=== PATIENT | female | born 1960 | race Caucasian/White ===

== ENCOUNTER → 2020-10-09 08:30 | Outpatient (BNVA) | payer BC, MEDICAID, SELFPAY | PROVIDERS: PCP Internal Medicine; Visit Provider Student in an Organized Health Care Education/Training Program ==

== ENCOUNTER → 2020-10-22 10:11 | Outpatient (BNVA) | payer BC, MEDICAID, SELFPAY | PROVIDERS: PCP Internal Medicine; Referring Provider Student in an Organized Health Care Education/Training Program; Visit Provider Surgery ==

== ENCOUNTER → 2021-03-10 09:03 | Outpatient (BNVA) | payer BC, MEDICAID, SELFPAY | PROVIDERS: PCP Internal Medicine; Visit Provider Nurse Practitioner Family ==

== ENCOUNTER 2023-08-22 08:48 | Outpatient (AMB) | payer BC, MEDICAID, SELFPAY ==
[2023-08-22 08:50] VITALS: BP 134/70; PULSE 75; TEMP 36.1; O2SAT 97; BMI 42.7
--- NOTE | 2023-08-22 08:50 | A.OFFVIS_ITS ---
Intake Vital Signs 08/22/23 08:50 Height 5 ft 3 in Weight 241 lb 2.971 oz BMI 42.7 BP 134/70 Blood Pressure Location Lt brachial Position Sitting Pulse 75 Pulse Source Pulse Oximeter Temp 97.0 F Temp Source Skin Pulse Oximetry (%) 97 Oxygen Delivery Method Room Air Intake Visit Reasons: Joint Pain-[place] 2020 Intake Note: Patient presents today for diffused myalgias. 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 Alvarado 63 yoF presents for follow-up of Polyarthralgia. She was last seen March 2021. Patient had Right Breast cancer, continues on letrazole and Raloxifene. Today she is bothered by her Upper and Lower back, with stiffness to her neck and trapezius muscles. Per Patient she uses cyclobenzaprine (from her sister) for pain and trazdone for sleep. She is not sure who is prescribing some of her medications. She also takes fluoxetine. Tylenold and advil helps with the back pain. She says she does not exercise, but does house work which makes her body hurt more. She also reports that at 1 point she was told she has fibromyalgia which she plans to discuss further with her primary care physicians. Prior Visit 04/2021 [place] Continues to have intermittent pain in her right shoulder due to her rotator cuff tendinopathy. Overall her pain is improved. She has completed physical therapy and now does exercises at home. She is using Tylenol with some effect and nabumetone when she has more intense pain. She is taking nabumetone sparingly. She follows with ortho at [facility] for bilateral knee pain, and has received injections of cortisone in the past. She states her knees are feeling well today. She states that she does not have any concerns today. She followed with surgery for a lump on the right side of her chest near the incision which was made for a tumor resection. Patient reports a history of breast cancer in that area many years ago. She states surgery offered minor surgery to address the lump which she declined. She will continue to monitor. [facility] Medical History (Updated 08/22/23 @ 09:41 by KIZZY uGzman-EVANGELINA) Myalgia of muscle of neck Greater trochanteric bursitis of both hips Chronic upper back pain Chronic lower back pain Lipoma of chest wall Surgical History History of lumpectomy History of total hysterectomy Family History Father Prostate cancer Maternal Aunt Lung cancer Family/Other Breast cancer Social History Alcohol intake: current Alcohol intake frequency: holidays/special occasions only Patient Tobacco Use Status: Never used Tobacco Physical Exam Vital Signs: Last Vital Signs Temp 97.0 F 08/22/23 08:50 Pulse 75 08/22/23 08:50 BP 134/70 08/22/23 08:50 Pulse Ox 97 08/22/23 08:50 Oxygen Delivery Method Room Air 08/22/23 08:50 BMI result Body Mass Index 42.7 Assessment & Plan Assessment & Plan (1) Chronic lower back pain: Code(s): M54.50 - Low back pain, unspecified; G89.29 - Other chronic pain Qualifiers: Back pain laterality: bilateral Sciatica presence: without sciatica Qualified Code(s): M54.50 - Low back pain, unspecified; G89.29 - Other chronic pain (2) Greater trochanteric bursitis of both hips: Code(s): M70.61 - Trochanteric bursitis, right hip; M70.62 - Trochanteric bursitis, left hip (3) Myalgia of muscle of neck: Code(s): M79.18 - Myalgia, other site Plan #Ms Alvarado returns to the office after a long absence with new complaints of upper and lower back mylagias and trocanteric bursitis. She decline injections today for the bursitis. I think the patient will benefit from PT for her back and trochanteric bursitis, so I will make the referral. I also encouraged her to continue the PT exercises at home. I discussed with patient's medication safety and that it has not it is advisable to take medication from someone else. She will discuss further with her primary care to restart her cyclobenzaprine. I spent 25 minutes reviewing history, evaluating patient and documenting follow- up in 1 year or sooner if needed Orders: Orders PT Evaluation and Treatment Today G89.29 - Other chronic pain, M54.50 - Low back pain, unspecified, M54.9 - Dorsalgia, unspecified, M70.61 - Trochanteric bursitis, right hip, M70.62 - Trochanteric bursitis, left hip Coding Level of Care Code Est Pt Level 3 (83079) Diagnoses Chronic bilateral low back pain without sciatica M54.50; G89.29 Back pain laterality: bilateral Sciatica presence: without sciatica Greater trochanteric bursitis of both hips M70.61; M70.62 Myalgia of muscle of neck M79.18
== END 2023-08-22 09:24 | disposition home or self-care (01) ==
PROVIDERS: PCP Internal Medicine; Visit Provider Nurse Practitioner Family
DX: M54.50 Low back pain, unspecified (principal); G89.29 Other chronic pain; M70.61 Trochanteric bursitis, right hip; M70.62 Trochanteric bursitis, left hip; M79.18 Myalgia, other site
CPT/HCPCS: 99213

== ENCOUNTER → 2023-08-22 08:48 | Outpatient (BNVA) | payer BC, MEDICAID, SELFPAY | PROVIDERS: PCP Internal Medicine; Visit Provider Nurse Practitioner Family ==

== ENCOUNTER 2024-08-20 09:49 | Outpatient (AMB) | payer BC, MEDICAID, SELFPAY ==
--- NOTE | 2024-08-20 09:58 | A.OFFVIS_ITS ---
Vital Signs 08/20/24 10:05 Height 5 ft 3 in Weight 255 lb 15.307 oz BMI 45.3 BP 140/80 H Blood Pressure Location Lt brachial Position Sitting Pulse 77 Pulse Source Pulse Oximeter Pulse Oximetry (%) 98 Oxygen Delivery Method Room Air Intake Visit Reasons: joint pain Intake Note: Patient presents for joint pain. Allergies cephalexin Allergy (Mild, Verified 08/20/24 10:02) Rash HPI Comments Details: Patient is a 64-year-old female with right breast cancer currently on letrozole and raloxifene, hypertension and polyarticular osteoarthritis/fibromyalgia here today for follow up Interval History: Patient last seen 08/22/2023 with Kimberly Sorenson. At that time she was following up for her polyarthralgias. She was complaining of upper and lower back pain with stiffness to her neck and trapezius muscles. She had evidence of trochanteric bursitis but declined injections. She was sent to PT Went to PT and had improvment in her pain Continues to have intermittent nack and shoulder pain Rheumatologic History: OA/Fibromyalgia Current Rheumatology Medication(s): [facility] Medical History (Updated 08/22/23 @ 09:41 by Kimberly Sorenson, [facility]) Myalgia of muscle of neck Greater trochanteric bursitis of both hips Chronic upper back pain Chronic lower back pain Lipoma of chest wall Surgical History History of lumpectomy History of total hysterectomy Family History Father Prostate cancer Maternal Aunt Lung cancer Family/Other Breast cancer Social History Alcohol intake: current Alcohol intake frequency: holidays/special occasions only Patient Tobacco Use Status: Never used Tobacco Review of Systems Const Details: Review of Systems Constitutional: Denies fever, chills, weight loss ENT: Denies vision changes, eye pain or eye redness, dental caries, dry mouth GI: Denies nausea, vomiting, diarrhea, abdominal pain, change in BM Pulm: Denies SOB, MENA, hemoptysis, wheezing Cards: Denies chest pain, palpitations Skin: Denies Raynaud's, rash, nail changes, photosensitivity, 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 Well appearing and in no apparent painful distress HEENT Conjunctiva and sclera clear. ?Pupils equal round and reactive to light. ?No lymphadenopathy. ? CHEST/RESPIRATORY SYSTEM Normal respiratory effort and able to speak in complete sentences. ?Clear to auscultation bilaterally. ?No crackles, rales, rhonchi, wheezes heard. CARDIAC SYSTEM Regular rate and rhythm. ?S1 and S2 heard no murmurs. 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 No deformities noted. ?No synovitis noted to the MCPs, PIPs or DIPs. ?No tenderness to palpation of these joints. Herbedens nodes Wrists: ?Full range of motion at the wrists without pain. ?No tenderness to palpation or synovitis noted to the wrists. Elbows: Full range of motion without pain. No tenderness, weakness, swelling, increased warmth or erythema. Shoulders: Full range of motion without pain. No tenderness, weakness, swelling, increased warmth or erythema. Hips: Full range of motion without pain. Hip bursa: No tenderness to palpation Knees: ?Full range of motion. ?No tenderness, swelling, increased warmth or erythema.?No effusion or crepitations Ankles: Full range of motion. ?No tenderness, swelling, increased warmth or erythema.? Feet: ?Negative squeeze test. ?No tenderness to palpation or swelling of the MTPs. Tender points:?No tenderness to palpation of the bilateral trapezius, supraspinatus, greater trochanters, anterior costochondral junctions, bilateral gluteal areas, bilateral suboccipital muscle insertions SKIN Skin intact without rashes. Results Reviewed Results Reviewed: No results noted in the chart Assessment & Plan Assessment & Plan (1) Polyarticular osteoarthritis: Code(s): M15.9 - Polyosteoarthritis, unspecified Plan: #Polyarticular OA Patient is a 64-year-old female with polyarticular osteoarthritis here today for follow up. Her joint pains are likely due to degenerative disease involving her C-spine and her spine. Recommended exercise and stretching at home as well as weight loss. Plan - Stretching and light exercise - Weight loss - RTC prn Plan I spent 20 minutes reviewing the record and labs, taking a history, examining the patient, discussing the treatment plan, ordering diagnostic work up and documenting in the medical record Coding Level of Care Code Est Pt Level 3 (27758) Diagnoses Polyarticular osteoarthritis M15.9
[2024-08-20 10:05] VITALS: BP 140/80; PULSE 77; O2SAT 98; BMI 45.3
--- OUTSIDE RECORDS SUMMARY | 2024-08-20 10:55 | XMS_ITS | Encounter Summary ---
Author Organization [facility] Address [address] [place] [address] Care Team Providers Care Digital Operations Analyst Name Role Phone Sanjana Arvizu MD Primary Care Provider [phone] Reason for Visit * Reason Comments Headache Encounter Details Date Type Department Care Team ([facility] st Contact Info) Description 07/24/2024 1:15 PM EST Office Visit Internal Medicine - [place] [address] [facility] [address] [place] [phone] Sanjana Arvizu MD 175 [facility] [address] [place] [phone] Sinusitis, unspecified chronicity, unspecified location (Primary Dx); HTN (hypertension), benign Social History Tobacco Use Types Packs/Day Years Used Date Smoking Tobacco: Never Smokeless Tobacco: Never Tobacco Cessation:Counseling Given: Not Answered Alcohol Use Standard Drinks/Week Comments Yes 0 (1 standard drink = 0.6 oz pur e alcohol) Comments Unknown Sex and Gender Information Value Date Recorded Sex Assigned at Not on file Legal Sex Female 12:53 AM EST Gender Identity Not on file Sexual Orientation Not on file documented as of this encounter Last Filed Vital Signs Vital Sign Reading Time Taken Comments Blood Pressure 154/68 07/24/2024 1:25 PM EST Pulse 88 07/24/2024 1:22 PM EST Temperature 36.6 ??C (97.8 ??F) 07/24/2024 1:22 PM ES T Respiratory Rate - - Oxygen Saturation 98% 07/24/2024 1:22 PM EST Inhaled Oxygen Concentration - - Weight 113 kg (250 lb) 07/24/2024 1:22 PM EST Height - - Body Mass Index 44.29 05/15/2024 3:44 PM EST documented in this encounter Ordered Prescriptions Prescription Sig Dispense Quantity Refills Last Filled Start Date End Date hydroCHLOROthiazid e 12.5 mg tablet Take 1 tablet (12.5 mg total) by mouth 1 (one) time each day. 30 each 5 07/24/2024 5 predniSONE (DELTASONE) 20 mg tablet Take 3 tabs (60mg) daily for 3 days, then take 2 tabs (40mg) daily for 3 days, then take 1 tab (20mg) daily for 3 days. 18 tablet 07/24/2024 5 azithromycin (ZITHROMAX) 250 mg tablet Take 2 tablets (500 mg total) by mouth 1 (one) time each day for 1 day, THEN 1 tablet (250 mg total) 1 (one) time each day for 4 days. 6 each 07/24/2024 5 documented in this encounter Progress Notes * Sanjana Arvizu MD - 07/24/2024 1:15 PM ESTAddended by: SANJANA ARVIZU on: 07/25/2024 11:50 PM Modules accepted: Level of Service * Sanjana Arvizu MD - 07/24/2024 1:15 PM EST CHIEF COMPLAINT: Headache IDENTIFIER: Jenny Mendez is a 64 y.o. old female. HPI: Patient is concerned about recurrent headaches and sinus congestion, Was recently prescribed sumatriptan for migraine headaches, she does not like the side effect of feeling tired in the morning. Patient's blood pressure is elevated, headache could be related to elevated blood pressure as well ROS: GENERAL: No malaise, significant weight loss or fever NECK: No lumps, goiter, pain or significant neck swelling RESPIRATORY: No cough, wheezing or shortness of breath CARDIOVASCULAR: No chest pain, leg swelling or palpitations GI: No abdominal discomfort, blood in stools or black stools PSYCH: No sleep disturbance, mood disorder or recent psychosocial stressors. PAST MEDICAL HISTORY: Patient Active Problem List Diagnosis Date Noted Malignant neoplasm of female breast (CMS/HCC) 05/15/2024 Vitamin D deficiency 05/15/2024 Vitamin B12 deficiency 05/15/2024 Osteoporosis 05/15/2024 Sprain of lateral collateral ligament of right knee 09/04/2018 Acute medial meniscus tear, right, sequela 09/04/2018 Arthritis of knee, right 08/21/2018 Old complete ACL tear, left 08/17/2017 Dislocation of left knee with medial meniscus tear 08/17/2017 Patellofemoral pain syndrome of left knee 08/02/2017 Past Surgical History: Procedure Laterality Date BREAST REDUCTION PROCEDURE: MN BREAST REDUCTION; COMMENT: and reconstruction SECTION PROCEDURE: HISTORICAL CHOLECYSTECTOMY 2000 PROCEDURE: HISTORICAL CHOLECYSTECTOMY COLONOSCOPY 09/08/2021 PROCEDURE: HISTORICAL COLONOSCOPY; COMMENT: diverticulosis HYSTERECTOMY PROCEDURE: HISTORICAL TOTAL HYSTERECTOMY WITH BSO MAMMOGRAM SIMON 01/2007 PROCEDURE: MAMMOGRAM, SCREENING, BOTH BREASTS; COMMENT: [facility]; neg OTHER SURGICAL HISTORY 2000 PROCEDURE: LAPAROSCOPIC SPLENECTOMY; COMMENT: Open TONSILLECTOMY PROCEDURE: HISTORICAL TONSILLECTOMY; COMMENT: and adenoidectomy SOCIAL HISTORY: Social History Tobacco Use Smoking status: Never Smokeless tobacco: Never Substance Use Topics Alcohol use: Yes FAMILY HISTORY: Family History Problem Relation Name Age of Onset Heart attack Mother age 45 Other cancer Maternal Grandfather unknown Hyperlipidemia Father Diabetes Father Breast cancer Other cousin Lung cancer Aunt mat Family Status Relation Name Status Mother (Not Specified) MGF (Not Specified) Father (Not Specified) Other (Not Specified) Aunt (Not Specified) No partnership data on file MEDICATIONS DISCONTINUED/REORDERED: Medications Discontinued During This Encounter Medication Reason SUMAtriptan (IMITREX) 25 mg tablet Non-compliance ACTIVE MEDICATIONS: Outpatient Medications Marked as Taking for the 07/24/24 encounter (Office Visit) with Sanjana Arvizu MD Medication Sig Dispense Refill acetaminophen (TYLENOL) 325 mg tablet Take 2 tablets (650 mg total) by mouth every 6 hours as needed. alendronate (FOSAMAX) 70 mg tablet Take 1 tablet (70 mg total) by mouth every 7 (seven) days. Take in the morning with a full glass of water, on an empty stomach, and do not take anything else by mouth or lie down for the next 30 min. 12 each 2 calcium carbonate-vitamin D3 600 mg-10 mcg (400 unit) capsule Take 1 capsule by mouth 2 (two) timesa day. 180 each 2 cyanocobalamin (VITAMIN B-12) 500 mcg tablet Take 1 tablet (500 mcg total) by mouth 1 (one) time each day. 90 tablet 3 FLUoxetine (PROzac) 20 mg capsule Take 1 capsule (20 mg total) by mouth 1 (one) time each day. ALLERGIES: Allergies Allergen Reactions Cephalexin Other Reaction(s): Rash/Dermatitis PHYSICAL EXAM: Visit Vitals BP (!) 154/68 (BP Location: Left arm, Patient Position: Sitting, BP Cuff Size: Large adult) Pulse 88 Temp 36.6 ??C (97.8 ??F) (Temporal) Wt 113 kg (250 lb) SpO2 98% BMI 44.29 kg/m?? Smoking Status Never BSA 2.12 m?? APPEARANCE: Alert and in no acute distress NECK: Neck supple, no adenopathy, thyroid symmetric and of normal size HEART: RRR with normal S1 and S2, no murmurs, no gallops, no JVD appreciated LUNG: clear to auscultation ABDOMEN: Bowel sounds normoactive, no bruits, soft, non-tender, without organomegaly or palpable masses SKIN: Skin color, texture, turgor normal. No rashes or lesions. LABS/IMAGING: Appointment on 05/27/2024 Component Date Value Ref Range Status Sodium 05/27/2024 136 133 - 145 mmol/L Final Potassium 05/27/2024 3.7 3.5 - 5.5 mmol/L Final Chloride 05/27/2024 103 96 - 110 mmol/L Final CO2 05/27/2024 31 21 - 32 mmol/L Final Anion Gap 05/27/2024 2 (L) 3 - 11 Final Glucose 05/27/2024 126 (H) 70 - 100 mg/dL Final BUN 05/27/2024 9 5 - 25 mg/dL Final Creatinine 05/27/2024 0.63 0.50 - 1.10 mg/dL Final eGFR 05/27/2024 101 >=60 mL/min/1.73m2 Final BUN/Creatinine Ratio 05/27/2024 14.3 Final Calcium 05/27/2024 8.9 8.5 - 10.5 mg/dL Final AST (SGOT) 05/27/2024 31 10 - 42 unit/L Final ALT (SGPT) 05/27/2024 26 10 - 60 unit/L Final Alkaline Phosphatase 05/27/2024 109 42 - 121 unit/L Final Total Protein 05/27/2024 7.2 6.0 - 8.0 g/dL Final Albumin 05/27/2024 3.4 3.2 - 5.0 g/dL Final Total Bilirubin 05/27/2024 1.0 0.0 - 1.4 mg/dL Final Vitamin B-12 05/27/2024 294 250 - 900 pcg/mL Final Office Visit on 04/17/2024 Component Date Value Ref Range Status RSV Rapid AG POC 04/17/2024 Negative Negative Final Internal Control Pass 04/17/2024 Yes Yes Final Medication and lab orders: No orders of the defined types were placed in this encounter. Other orders: None IMPRESSION: 1. Sinusitis, unspecified chronicity, unspecified location 2. HTN (hypertension), benign PLAN: Will prescribe Z-Andry Continue Tylenol as needed Hypertension--will start hydrochlorothiazide 12.5 mg daily Will follow-up as scheduled or sooner as needed Sanjana Arvizu MD on 07/25/2024 at 11:49 PM EST documented in this encounter Plan of Treatment Upcoming Encounters Date Type Department Care Team (Late st Contact Info) Description 09/23/2024 1:00 PM EDT Office Visit Internal Medicine - [place] [address] [phone] Sanjana Arvizu MD [address] [phone] 05/21/2025 9:15 AM EST Office Visit [facility] Hematology Oncology [address] [place] [phone] Fernie Marinelli MD [address] [place] [address] documented as of this encounter Visit Diagnoses Diagnosis Sinusitis, unspecified chronicity, unspecified location- Primary HTN (hypertension), benign Essential hypertension, benign documented in this encounter Discontinued Medications Medication Sig Discontinue Reason Start Date End Da te SUMAtriptan (IMITREX) 25 mg tablet Take 1 tablet (25 mg total) by mouth every 2 hours as needed. Non-compliance 07/24/2024 documented as of this encounter Care Teams Digital Operations Analyst Relationship Specialty Start Date End Date Sanjana Arvizu MD [address] [place] [phone] PCP - General Internal Medicine 05/10/18 documented as of this encounter
--- OUTSIDE RECORDS SUMMARY | 2024-08-20 10:55 | XMS_ITS | Encounter Summary ---
Author Organization 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 Name Role Phone Sanjana Arvizu MD Primary Care Provider [phone] Reason for Visit * Reason Onset Date Comments Headache 07/23/2024 Encounter Details Date Type Department Care Team ([facility] st Contact Info) Description 07/23/2024 Telephone Internal Medicine - [place] [address] [facility] [address] [place] [phone] Sanjana Arvizu MD [address] [facility] [address] [place] [phone] Headache Social History Tobacco Use Types Packs/Day Years Used Date Smoking Tobacco: Never Smokeless Tobacco: Never Alcohol Use Standard Drinks/Week Comments Yes 0 (1 standard drink = 0.6 oz pur e alcohol) Comments Unknown Sex and Gender Information Value Date Recorded Sex Assigned at Not on file Legal Sex Female 12:53 AM EST Gender Identity Not on file Sexual Orientation Not on file documented as of this encounter Progress Notes * Leslye Bush RN - 07/24/2024 9:13 AM EST Call to pt # [phone], spoke w/ her. Appt rescheduled for today, tomorrow cancelled * Patti Adair - 07/24/2024 9:11 AM EST Pt is requesting a cb, * Sharri Peres RN - 07/23/2024 2:34 PM EST Call to pt # [phone], spoke to pt Pt not sleeping well, always tired and has been having headaches. Pt unclear as to when they start,that they aren't reacting to medication, and has been happening at minimum a few months but could be a full year. Pt also reports she occasionally feels SOB with exertion and when first waking up. Advised pt to call tomorrow morning to check for cancellations. Scheduled appt for later this week if no cancellations * Maddy Kincaid - 07/23/2024 2:23 PM EST Patient called and stated that she is having really bad headaches and has a hard time waking up in the morning is very fatigued in the morning and she has also not been sleeping well and she has feltlike this for a couple of months and is requesting a appt with Dr Arvizu soon. Please advise Cb# [phone] documented in this encounter Plan of Treatment Upcoming Encounters Date Type Department Care Team (Late st Contact Info) Description 09/23/2024 1:00 PM EDT Office Visit Internal Medicine - [place] [address] [phone] Sanjana Arvizu MD [address] [phone] 05/21/2025 9:15 AM EST Office Visit [facility] Hematology Oncology [address] [place] [phone] Fernie Marinelli MD [address] [place] [address] documented as of this encounter Visit Diagnoses Not on filedocumented in this encounter Discontinued Medications Medication Sig Discontinue Reason Start Date End Da te amitriptyline (ELAVIL) 25 mg tablet Take 1 tablet (25 mg total) by mouth at bedtime. Non-compliance 05/15/2024 07/23/2024 SUMAtriptan (IMITREX) 25 mg tablet Take 1 tablet (25 mg total) by mouth every 2 hours as needed. Non-compliance 07/24/2024 documented as of this encounter Care Teams Baseball Player Relationship Specialty Start Date End Date Sanjana Arvizu MD [address] [place] [phone] PCP - General Internal Medicine 05/10/18 documented as of this encounter
--- OUTSIDE RECORDS SUMMARY | 2024-08-20 10:55 | XMS_ITS ---
Author Name [facility] Organization Unknown History of Medication Use Medication Directions Dispensed Refills Start Date End Date Stat trazodone 50 mg tablet TAKE 1 TABLET BY MOUTH AT BEDTIME NEEDED active topiramate 50 mg tablet TAKE 1 TABLET BY MOUTH 2 TIMES DAILY FOR 360 DAYS. active lidocaine (PF) 100 mg/5 mL (2 %) injection syringe Take 2 mL by injection route. 09/07/2023 active fluoxetine 20 mg capsule TAKE 1 CAPSULE BY MOUTH EVERY DAY active Problems Problem Status Onset Date Problem Type Date of Resoluti on Source Pain of right knee joint active 2023-09-07 ProblemAct [facility] Pain of right calf active 2023-09-07 ProblemAct [facility] Encounters Encounter Type Encounter Reason Primary Diagnosis Location Date Ambulatory [facility] 10/13/2023 Ambulatory [facility] 09/11/2023 Ambulatory [facility] 09/11/2023 Ambulatory [facility] 09[facility]07/2023 Ambulatory [facility] 09/07/2023 Ambulatory [facility] 09/07/2023 Ambulatory [facility] 09/06/2023 Ambulatory [facility] 09/05/2023 Ambulatory [facility] 09/05/2023 Ambulatory [facility] 09/04/2023 Ambulatory [facility] 09/04/2023
--- OUTSIDE RECORDS SUMMARY | 2024-08-20 10:55 | XMS_ITS | Clinical Summary ---
Author Organization [facility] Address [address] [place] [address] Care Team Providers Care Ocean Export Account Manager Name Role Phone Sanjana Arvizu MD Primary Care Provider [phone] Allergies Active Allergy Reactions Criticality Noted Date Comments Cephalexin 11/25/2016 Medications Medication Sig Dispensed Refills Start Date End Date Status CALCIUM PO Take by mouth daily. 0 Active SUMAtriptan (IMITREX) 25 MG tablet Take 1 tablet (25 mg total) by mouth every 2 (two) hours as needed for migraine. 0 Active acetaminophen (TYLENOL) 325 MG tablet Take 2 tablets (650 mg total) by mouth every 6 (six) hours as needed for pain. 0 Active raloxifene (EVISTA) tablet 60 mg TAKE 1 TABLET BY MOUTH EVERY DAY 90 tablet 3 01/17/2024 Active Active Problems Problem Noted Date Diagnosed Date Sprain of lateral collateral ligament of right k nee 09/04/2018 Acute medial meniscus tear, right, sequela 09/04 Arthritis of knee, right 08/21/2018 Old complete ACL tear, left 08/17/2017 Dislocation of left knee with medial meniscus te ar 08/17/2017 Patellofemoral pain syndrome of left knee 2017 Family History Medical History Relation Name Comments Cancer Father Cancer Maternal Aunt Relation Name Status Comments Father Maternal Aunt Social History Tobacco Use Types Packs/Day Years Used Date Smoking Tobacco: Never Smokeless Tobacco: Never Alcohol Use Standard Drinks/Week Comments Yes 0 (1 standard drink = 0.6 oz pur e alcohol) socially Sex and Gender Information Value Date Recorded Sex Assigned at Not on file Gender Identity Not on file Sexual Orientation Not on file Job Start Date Occupation Industry Not on file Not on file Not on file Last Filed Vital Signs Vital Sign Reading Time Taken Comments Blood Pressure 152/66 09/12/2023 10:03 AM EDT Pulse 69 09/12/2023 10:03 AM EDT Temperature 37.1 ??C (98.8 ??F) 09/12/2023 10:03 AM E DT Respiratory Rate - - Oxygen Saturation 98% 09/12/2023 10:03 AM EDT Inhaled Oxygen Concentration - - Weight 109.8 kg (242 lb) 09/12/2023 10:03 AM EDT Height 160 cm (5' 3 ) 09/12/2023 10:03 AM EDT Body Mass Index 42.87 09/12/2023 10:03 AM EDT Plan of Treatment Health Maintenance Due Date Last Done Comments Hepatitis C Screening 1960 COVID-19 Vaccine (#1) 1967 Depression Screening 1974 BMI Counseling 1980 Preventative Health Evaluation 1980 Shingrix-Zoster Vaccine (1 of 2) 1981 Cervical Cancer Screening (Pap Smear) 1983 Colon Cancer Screening (Colonoscopy) 2007 Breast Cancer Screening (Mammogram) 2012 Pneumococcal Vaccine (3 of 3 - PCV) 07/06/2016 07/06/2015, 02/14/2008, 06/05/2007 DTap / Tdap / Td (5 - Td or Tdap) 11/10/2020 11/10/2010, 03/20/2008, 03/20/2008, Additional history exists RSV Adult > 60+ Yrs or (1 - Risk 60-74 years 1-dose series) 2022 Influenza Vaccine (#1) 2024 04/03/2019 Hepatitis B Vaccines Aged Out No long er eligible based on patient's age to complete this topic RSV Ped < 20 months Aged Out No longe r eligible based on patient's age to complete this topic Advance Directives For more information, please contact: [phone] Documents on File Type Date Recorded 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
--- OUTSIDE RECORDS SUMMARY | 2024-08-20 10:56 | XMS_ITS | Clinical Summary ---
Author Organization [address] [facility] Address [address] [place] [address] Phone Care Team Providers Care [employer] Senior Officer Name Role Phone Sanjana Arvizu MD Primary Care Provider [phone] Allergies Active Allergy Reactions Criticality Noted Date Comments Cephalexin 07/06/2015 Other Reaction(s): Rash/Dermatitis Medications acetaminophen (TYLENOL) 325 mg tablet Take 2 tablets (650 mg total) by mouth every 6 hours as needed. Active raloxifene (EVISTA) 60 mg tablet Take 1 tablet (60 mg total) by mouth 1 (one) time each day. 3 Active FLUoxetine (PROzac) 20 mg capsule Take 1 capsule (20 mg total) by mouth 1 (one) time each day. Active calcium carbonate-vitam in D3 600 mg-10 mcg (400 unit) capsule Take 1 capsule by mouth 2 (two) times a day. 180 each 2 4 Active alendronate (FOSAMAX) 70 mg tablet Take 1 tablet (70 mg total) by mouth every 7 (seven) days. Take in the morning with a full glass of water, on an empty stomach, and do not take anything else by mouth or lie down for the next 30 min. 12 each 2 4 Active cyanocobalamin (VITAMIN B-12) 500 mcg tablet Take 1 tablet (500 mcg total) by mouth 1 (one) time each day. 90 tablet 3 4 Active hydroCHLOROthia zide 12.5 mg tablet Take 1 tablet (12.5 mg total) by mouth 1 (one) time each day. 30 each 5 5 01/21/20 25 Active SUMAtriptan (IMITREX) 25 mg tablet Take 1 tablet (25 mg total) by mouth every 2 hours as needed. 07/24/19 25 Discontinue d(Non-compl iance) amitriptyline (ELAVIL) 25 mg tablet Take 1 tablet (25 mg total) by mouth at bedtime. 90 each 3 4 07/23/19 25 Discontinue d(Non-compl iance) azithromycin (ZITHROMAX) 250 mg tablet Take 2 tablets (500 mg total) by mouth 1 (one) time each day for 1 day, THEN 1 tablet (250 mg total) 1 (one) time each day for 4 days. 6 each 5 07/29/19 25 predniSONE (DELTASONE) 20 mg tablet Take 3 tabs (60mg) daily for 3 days, then take 2 tabs (40mg) daily for 3 days, then take 1 tab (20mg) daily for 3 days. 18 tablet 5 08/02/19 25 Active Problems Problem Noted Date Diagnosed Date Malignant neoplasm of female breast 05/15/2024 Vitamin D deficiency 05/15/2024 Vitamin B12 deficiency 05/15/2024 Osteoporosis 05/15/2024 Sprain of lateral collateral ligament of right k nee 09/04/2018 Acute medial meniscus tear, right, sequela 09/04 Arthritis of knee, right 08/21/2018 Old complete ACL tear, left 08/17/2017 Dislocation of left knee with medial meniscus te ar 08/17/2017 Patellofemoral pain syndrome of left knee 2017 Encounters Date Type Department Care Team Description 07/24/2024 1:15 PM EST Office Visit Internal Medicine - [address] [phone] Sanjana Arvizu MD Sinusitis, unspecified chronicity, unspecified location (Primary Dx); HTN (hypertension), benign 07/23/2024 Telephone Internal Medicine [address] [phone] Sanjana Arvizu MD Headache from Last 3 Months Surgical History Surgery Date Site/Laterality Comments OTHER SURGICAL HISTORY 2000 PROCEDURE: LAPAROSCOPIC SPLENECTOMY; COMMENT: Open CHOLECYSTECTOMY 2000 PROCEDURE: HISTORICAL CHOLECYSTECTOMY MAMMOGRAM SIMON 01/2007 PROCEDURE: MAMMOGRAM, SCREENING, BOTH BREASTS; COMMENT: [facility]; neg SECTION PROCEDURE: HISTORICAL TONSILLECTOMY PROCEDURE: HISTORICAL TONSILLECTOMY; COMMENT: and adenoidectomy HYSTERECTOMY PROCEDURE: HISTORICAL TOTAL HYSTERECTOMY WITH BSO BREAST REDUCTION PROCEDURE: ID BREAST REDUCTION; COMMENT: and reconstruction COLONOSCOPY 09/08/2021 PROCEDURE: HISTORICAL COLONOSCOPY; COMMENT: diverticulosis Medical History Medical History Date Comments Allergic rhinitis 02/08/2018 DX:Allergic rh initis Brachial plexus lesions 06/09/2010 DX:Brach ial plexus lesions Cervical radiculopathy 07/06/2015 DX:Cervic al radiculopathy Chronic pain 07/31/2017 DX:Chronic pain Depression 10/16/2015 DX:Depression Diverticulosis 09/17/2013 DX:Diverticulosi s Fibromyalgia 02/01/2017 DX:Fibromyalgia GERD (gastroesophageal reflux disease) 07/06/2015 DX:GERD (gastroesophageal reflux disease) History of breast cancer 07/31/2017 DX:Hist ory of breast cancer History of hereditary spherocytosis 12/28/2006 DX:History of hereditary spherocytosis; COMMENT: Splenectomy Hyperlipidemia 07/31/2017 DX:Hyperlipidemi a Osteoporosis 02/08/2018 DX:Osteoporosis Scoliosis 08/21/2013 DX:Scoliosis Snoring 03/28/2012 DX:Snoring Thrombocythemia, essential (CMS/HCC) 07/31/2017 DX:Thrombocythemia, essential (HCC) Vitamin D deficiency 09/29/2016 DX:Vitamin D deficiency Family History Medical History Relation Name Comments Lung cancer Aunt mat Diabetes Father Hyperlipidemia Father Other cancer Maternal Grandfather unknown Heart attack Mother age 45 Breast cancer Other cousin Relation Name Status Comments Aunt Father Maternal Grandfather Mother Other Social History Tobacco Use Types Packs/Day Years [...] on file Sexual Orientation Not on file Obstetrics History Last Filed Vital Signs Vital Sign Reading Time Taken Comments Blood Pressure 154/68 07/24/2024 1:25 PM EST Pulse 88 07/24/2024 1:22 PM EST Temperature 36.6 ??C (97.8 ??F) 07/24/2024 1:22 PM ES T Respiratory Rate - - Oxygen Saturation 98% 07/24/2024 1:22 PM EST Inhaled Oxygen Concentration - - Weight 113 kg (250 lb) 07/24/2024 1:22 PM EST Height 160 cm (5' 3 ) 05/15/2024 3:44 PM EST Body Mass Index 44.29 05/15/2024 3:44 PM EST Plan of Treatment Upcoming Encounters Date Type Department Care Team (Late st Contact Info) Description 09/23/2024 1:00 PM EDT Office Visit Internal Medicine - [place] [address] [phone] Sanjana Arvizu MD [address] [phone] 05/21/2025 9:15 AM EST Office Visit [facility] Hematology Oncology [address] [place] [phone] Fernie Marinelli MD [address] [place] [address] Health Maintenance Due Date Last Done Comments COVID-19 Vaccine (#1) 1967 Zoster Vaccines (1 of 2) 1981 Cervical Cancer Screening: Pap Smear 1983 IPV Vaccines (2 of 3 - Adult catch-up series) 04/17/2008 03/20/2008 Pneumococcal Vaccine: 50+ Years (3 of 3 - PCV) 07/06/2016 07/06/2015, 02/14/2008, 06/05/2007 Pneumococcal Vaccine: Pediatrics (0 to 5 Years) and At-Risk Patients (6 to 64 Years) (3 of 3 - PCV) 07/06/2016 07/06/2015, 02/14/2008, 06/05/2007 DTaP,Tdap,and Td Vaccines (5 - Td or Tdap) 11/10/2020 11/10/2010, 03/20/2008, 03/20/2008, Additional history exists Cholesterol Screening (Lipid Panel) 05/13/2022 Depression Screening 05/13/2022 HIV Screening 05/13/2022 Hepatitis C Screening 05/13/2022 Social Influencers of Health Screening 05/13/2022 RSV Immunization Patients 60+ Years Old (1 - Risk 60-74 years 1-dose series) 2022 Influenza Vaccine (#1) 2024 04/03/2019 Hypertension/CHF/CAD Annual BMP Blood Test 05/27/2025 05/27/2024, 12/05/2023 Breast Cancer Screening 10/19/2025 10/20/19 24, 10/17/2022, 10/14/2021, Additional history exists Colorectal Cancer Screening: Colonoscopy 09/11/2031 Osteoporosis Screening (Bone Density Screening) 03/31/2033 03/31/2023, 10/27/2020, 07/04/2019, Additional history exists Meningococcal ACWY Vaccine Aged Out 02/14/2008, No longer eligible based on patient's age to complete this topic HIB Vaccines Aged Out 03/20/2008 No longer eligi ble based on patient's age to complete this topic HPV Vaccines Aged Out No longer eligi ble based on patient's age to complete this topic Hepatitis A Vaccines Aged Out No long er eligible based on patient's age to complete this topic Hepatitis B Vaccines Aged Out No long er eligible based on patient's age to complete this topic MMR Vaccines Aged Out No longer eligi ble based on patient's age to complete this topic Meningococcal B Vacine Aged Out No lo nger eligible based on patient's age to complete this topic RSV Immunization Patients Under 20 months Aged Out No longer eligible based on patient's age to complete this topic Varicella Vaccines Aged Out No longer eligible based on patient's age to complete this topic Procedures Procedure Name Priority Date/Time Associated Diagnosis Comments VITAMIN B12 Routine 05/27/2024 9:17 AM EST Vitamin D deficiency Vitamin B12 deficiency COMPREHENSIVE METABOLIC PANEL Routine 05/27/2024 9:17 AM EST Vitamin D deficiency Vitamin B12 deficiency [facility] SCREENING DIGITAL Routine 10/20/2023 10:13 AM EDT Encounter for screening mammogram for malignant neoplasm of breast [facility] DEXA AXIAL SKELETON Routine 03/31/2023 4:27 PM EDT Age-related osteoporosis without current pathological fracture from Last 3 Months or Most Recently Relevant to Health Maintenance Results * Vitamin B12 (05/27/2024 9:17 AM EST) [facility] Vitamin B-12 294 250 - 900 pcg/mL LAB CHEMISTRY METHOD 05/27/2024 4:26 PM [facility] Blood Venous blood specimen / Unknown Venipuncture / Unknown 05/27/2024 9:17 AM EST 05/27/2024 9:17 AM EST us Sanjana Arvizu MD LAB BLOOD ORDERABLES Final Res ult [facility] [address] [place] [address], * (ABNORMAL) Comprehensive metabolic panel (05/27/2024 9:17 AM EST) [facility] Sodium 136 133 - 145 mmol/L LAB CHEMISTRY METHOD 05/27/2024 4:26 PM [facility] Potassium 3.7 3.5 - 5.5 mmol/L LAB CHEMISTRY METHOD 05/27/2024 4:26 PM [facility] Chloride 103 96 - 110 mmol/L LAB CHEMISTRY METHOD 05/27/2024 4:26 PM [facility] CO2 31 21 - 32 mmol/L LAB CHEMISTRY METHOD 05/27/2024 4:26 PM [facility] Anion Gap 2(L) 3 - 11 LAB CHEMISTRY METHOD 05/27/2024 4:26 PM [facility] Glucose 126(H) 70 - 100 mg/dL LAB CHEMISTRY METHOD 05/27/2024 4:26 PM [facility] BUN 9 5 - 25 mg/dL LAB CHEMISTRY METHOD 05/27/2024 4:26 PM [facility] Creatinine 0.63 0.50 - 1.10 mg/dL LAB CHEMISTRY METHOD 05/27/2024 4:26 PM [facility] eGFR 101 >=60 mL/min/1. 73m2 LAB CHEMISTRY METHOD 05/27/2024 4:26 PM [facility] Comment:Calculation based on the??Chronic Kidney Disease Epidemiology Collaboration (CKD-EPI) equation refit??without adjustment for race. BUN/Creatinine Ratio 14.3 LAB CHEMISTRY METHOD 05/27/2024 4:26 PM [facility] Calcium 8.9 8.5 - 10.5 mg/dL LAB CHEMISTRY METHOD 05/27/2024 4:26 PM [facility] AST (SGOT) 31 10 - 42 unit/L LAB CHEMISTRY METHOD 05/27/2024 4:26 PM [facility] ALT (SGPT) 26 10 - 60 unit/L LAB CHEMISTRY METHOD 05/27/2024 4:26 PM [facility] Alkaline Phosphatase 109 42 - 121 unit/L LAB CHEMISTRY METHOD 05/27/2024 4:26 PM [facility] Total Protein 7.2 6.0 - 8.0 g/dL LAB CHEMISTRY METHOD 05/27/2024 4:26 PM [facility] Albumin 3.4 3.2 - 5.0 g/dL LAB CHEMISTRY METHOD 05/27/2024 4:26 PM [facility] Total Bilirubin 1.0 0.0 - 1.4 mg/dL LAB CHEMISTRY METHOD 05/27/2024 4:26 PM [facility] Blood Venous blood specimen / Unknown Venipuncture / Unknown 05/27/2024 9:17 AM EST 05/27/2024 9:17 AM EST us Sanjana Arvizu MD LAB BLOOD ORDERABLES Final Res ult [facility] [address] [place] [address], * [facility] SCREENING DIGITAL (10/20/2023 10:13 AM EDT) Anatomical Region Laterality Modality Mammography 10/20/2023 9:36 AM EDT Narrative 10/20/2023 10:13 AM EDT [facility] Diagnostic Imaging Department [address] [place] [address] Patient: ??JENNY MENDEZ ?/Age/Sex: 1960 - 63 - F Unit#: ??[id number] ? Location/Status: ??SPDIMAM/REG CLI ? Mnemonic/Ordering Site: ??DIGSC/SPMAM Ordering Physician: ??VIJI RAY MD [facility] Screening Digital - 10/20/23 - 0949 Report Status:Signed EXAM: [facility] Screening Digital EXAM DATE AND TIME: 10/20/2023 9:50 AM HISTORY: ??Annual screening COMPARISON: ??Multiple exams dating back to 2019 TECHNIQUE: Bilateral digital breast tomosynthesis was performed in the CC and MLO projections. Computer aided detection with [employer] 3D 3.1 was employed. TISSUE DENSITY: b. There are scattered areas of fibroglandular density. FINDINGS: No suspicious masses, grouped microcalcifications, or areas of architectural distortion are seen. The skin and vascularity are unremarkable. IMPRESSION: Stable mammographic appearance of the breasts. ??No evidence of malignancy is seen. A negative mammogram in the presence of a clinically suspicious palpable abnormality does not preclude the possibility of malignancy or alter the indications for biopsy. BI-RADS: ??Category 1: Negative RECOMMENDATION(S): 1: Routine screening mammogram BILATERAL in 1 year. 3341F, 7025F Dictating Physician: ??FER AZEVEDO MD Electronically Signed by: ??FER AZEVEDO MD Dic Date/Time: ??10/20/23 1012 Sign date/Time: ??10/20/23 1013 Procedure Note Fer Azevedo MD - 01/22/2024 [facility] Diagnostic Imaging Department [address] [place] [address] Patient: JENNY MENDEZ Arthur /Age/Sex: 1960 - 63 - F Unit#: [id number] Location/Status: [facility] Mnemonic/Ordering Site: [facility] Ordering Physician: VIJI RAY MD [facility] Screening Digital - 10/20/23 - 0949 Report Status:Signed EXAM: [facility] Screening Digital EXAM DATE AND TIME: 10/20/2023 9:50 AM HISTORY: Annual screening COMPARISON: Multiple exams dating back to 2019 TECHNIQUE: Bilateral digital breast tomosynthesis was performed in the CCand MLO projections. Computer aided detection with [employer] 3D 3.1was employed. TISSUE DENSITY: b. There are scattered areas of fibroglandular density. FINDINGS: No suspicious masses, grouped microcalcifications, or areas ofarchitectural distortion are seen. The skin and vascularity are unremarkable. IMPRESSION: Stable mammographic appearance of the breasts. No evidence of malignancyis seen. A negative mammogram in the presence of a clinically suspicious palpable abnormality does not preclude the possibility of malignancy or alter the indications for biopsy. BI-RADS: Category 1: Negative RECOMMENDATION(S): 1: Routine screening mammogram BILATERAL in 1 year. 3341F, 7025F Dictating Physician: FER AZEVEDO MD Electronically Signed by: FER AZEVEDO MD Dic Date/Time: 10/20/23 1012 Sign date/Time: 10/20/23 1013 us Viji Ray MD IMG BI PROCEDURES Final Result * [facility] DEXA AXIAL SKELETON (03/31/2023 4:27 PM EDT) Anatomical Region Laterality Modality Mammography 03/31/2023 10:4 5 AM EDT Narrative 03/31/2023 4:27 PM EDT [facility] Diagnostic Imaging Department [address] [place] [address] Patient: ??ODETTE MENDEZON Arthur ?/Age/Sex: 1960 - 62 - F Unit#: ??[id number] ? Location/Status: ??SPDIMAM/REG CLI ? Mnemonic/Ordering Site: ??MAMDEXAAX/SPMAM Ordering Physician: ??FERNIE MARINELLI MD [facility] Dexa Axial Skeleton - 03/31/23 - 1106 Report Status:Signed History: Low estrogen state due to menopause. Comparison: 10/27/20 Findings: Bone densitometry is performed utilizing dual energy x-ray absorptiometry (DXA) in the [employer] unit. The lumbar spine and proximal femora are evaluated in the AP projection. The FRAX questionaire was completed. The results indicate osteoporosis, with a left femoral neck T-score of -3.3. The Z score is -2.8, indicating very low bone mineral density for age. There has been no statistically significant change. ??The detailed DEXA report will be mailed to the referring physician's office. [employer]em[employer] FRAX: 10-year Probability of Fracture: Major Osteoporotic 12.3 percent ??Hip 2.9 percent. IMPRESSION: Osteoporosis. [id number] Dictating Physician: ??THANIA JACQUES MD Electronically Signed by: ??THANIA JACQUES MD Dic Date/Time: ??03/31/231625 Sign date/Time: ??03/31/231626 Procedure Note Thania Jacques MD - 07/11/2023 [facility] Diagnostic Imaging Department [address] [place] [address] Patient: JENNY MENDEZ D.O.B./Age/Sex: 1960 - 62 - F Unit#: [id number] Location/Status: SPDIMA/REG CLI [facility] Ordering Physician: FERNIE MARINELLI MD [facility] Dexa Axial Skeleton - 03/31/23 - 1106 Report Status:Signed History: Low estrogen state due to menopause. Comparison: 10/27/20 Findings: Bone densitometry is performed utilizing dual energy x-ray absorptiometry(DXA) in the [employer] unit. The lumbar spine and proximal femora areevaluated in the AP projection. The FRAX questionaire was completed. The results indicate osteoporosis, with a left femoral neck T-score of-3.3. The Z score is -2.8, indicating very low bone mineral density for age. There has been no statistically significant change. The detailed DEXAreport will be mailed to the referring physician's office. [employer] FRAX: 10-year Probability of Fracture: Major Osteoporotic 12.3 percent Hip 2.9 percent. IMPRESSION: Osteoporosis. [id number] Dictating Physician: THANIA JACQUES MD Electronically Signed by: THANIA JACQUES MD Dic Date/Time: 03/31/23 162 Sign date/Time: 03/31/23 162 Fernie Marinelli MD IMG BI PROCEDURES Final Resu lt from Last 3 Months or Most Recently Relevant to Health Maintenance Insurance [facility] MEDICAID - [place] Care Teams [employer] Senior [employer] Relationship Specialty Start Date End Date Sanjana Arvizu MD [address] [phone] PCP - General Internal Medicine 05/10/18
== END 2024-08-20 10:25 | disposition home or self-care (01) ==
LOC: HO.RHE 09:49
PROVIDERS: PCP Internal Medicine; Visit Provider Student in an Organized Health Care Education/Training Program
DX: M15.9 Polyosteoarthritis, unspecified (principal)
CPT/HCPCS: 99213

== ENCOUNTER → 2024-08-20 09:49 | Outpatient (BNVA) | payer BC, MEDICAID, SELFPAY | PROVIDERS: PCP Internal Medicine; Visit Provider Student in an Organized Health Care Education/Training Program ==